=== PATIENT | male | born 1955 | race Two or more races ===

== ENCOUNTER 2023-08-03 17:00 | Outpatient (CLI) | payer OTHER | END 2023-08-03 23:00 | disposition home or self-care (01) | LOC: RAD 17:00 | PROVIDERS: ATTEND Neurological Surgery | DX: M51.36 Other intervertebral disc degeneration, lumbar region (principal); M51.37 Other intervertebral disc degeneration, lumbosacral region; M25.561 Pain in right knee; M25.562 Pain in left knee ==